=== PATIENT | male | born 2000 | race Caucasian/White ===

== ENCOUNTER 2022-03-28 07:02 | Inpatient (IN) ==
[2022-03-28 10:46] LABS: Influenza A PCR Negative (Negative); Influenza B PCR Negative (Negative); Resp. Syncytial Virus PCR Negative (Negative)
[2022-03-28 11:04] LABS: SARS-CoV-2 by PCR (In House) Negative (Negative)
[2022-03-28] MEDS ORDERED: Haloperidol Lactate 5 MG/ML VIAL IM PRN (15:02)
[2022-03-28] MEDS ORDERED: haloperidoL 5 MG TABLET PO PRN (15:02)
[2022-03-28] MEDS ORDERED: *HR* LORazepam 2 MG/ML VIAL IM PRN (15:02)
[2022-03-28] MEDS ORDERED: hydrOXYzine pamoate 25 MG CAPSULE PO PRN (15:02)
[2022-03-28] MEDS ORDERED: *HR* LORazepam 1 MG TABLET PO PRN (15:54)
[2022-03-28] MEDS: traZODone 50 MG TABLET PO PRN (22:02)
[2022-03-28] MEDS: Acetaminophen 325 MG TABLET PO PRN (22:29)
[2022-03-29] MEDS: Acetaminophen 325 MG TABLET PO PRN (18:18)
[2022-03-29] MEDS: traZODone 50 MG TABLET PO PRN (20:50)
[2022-03-30] MEDS: Acetaminophen 325 MG TABLET PO PRN (21:52)
[2022-04-01 09:47] VITALS: BP 136/78; PULSE 57; TEMP 97.8; O2SAT 97
== END 2022-04-01 14:50 | disposition home or self-care (01) | DRG 751 ==
LOC: EMEROOARM 07:02 → 1ANU 13:12 → INTOOBSV 13:12 → 1ANU 13:42
PROVIDERS: ADMIT Psychiatry & Neurology Forensic Psychiatry; ATTEND Psychiatry & Neurology Forensic Psychiatry